=== PATIENT | female | born 1965 | race Caucasian/White ===

== ENCOUNTER 2022-09-26 10:06 | Outpatient (CLI) | payer OTHER, SELFPAY ==
--- NOTE | 2022-09-26 10:15 | CRLHL7_ITS ---
For Patients: As a result of the Cures Act, medical imaging exams and procedure reports are released immediately into your electronic medical record. You may view this report before your referring provider. If you have questions, please contact your health care provider. BILATERAL SCREENING MAMMOGRAM WITH COMPUTER-AIDED DETECTION AND TOMOSYNTHESIS TECHNIQUE: CC and MLO views were obtained. These mammographic images have been obtained using full-field digital technique. These mammographic images were interpreted with the benefit of computer-aided detection. Breast Tomosynthesis was used in this interpretation. COMPARISON FILM: 09/07/21, 08/24/20, 02/27/18. FINDINGS: The breasts are heterogeneously dense, which may obscure small masses IMPRESSION: There is no radiographic evidence for malignancy. ASSESSMENT: BI-RADS Category 1: Negative RECOMMENDATION: Routine screening mammogram in 1 year. A lay language report of this examination will be provided to the patient. Beny Smith M.D. Diagnostic Radiologist [email or web address] Transcribed: 1:12 [email or web address]/Dictated by: Beny Smith MD @ 09/26/2022 12:01:00 PM (Electronically Signed)
== END 2022-09-26 10:07 | disposition home or self-care (01) ==
LOC: MAMMO 10:07
PROVIDERS: Visit Provider Family Medicine
DX: Z12.31 Encounter for screening mammogram for malignant neoplasm of breast (principal); R92.2 Inconclusive mammogram
CPT/HCPCS: 77063; 77067

== ENCOUNTER 2023-05-09 10:45 | Outpatient (RCR) | payer OTHER, SELFPAY | END 2023-05-09 11:13 | disposition home or self-care (01) | PROVIDERS: Visit Provider Orthopaedic Surgery Sports Medicine | DX: M75.82 Other shoulder lesions, left shoulder (principal); Z51.89 Encounter for other specified aftercare | CPT/HCPCS: 97110; 97161 ==

== ENCOUNTER 2023-09-28 10:33 | Outpatient (CLI) | payer OTHER, SELFPAY ==
--- NOTE | 2023-09-28 10:45 | CRLHL7_ITS ---
For Patients: As a result of the Century Cures Act, medical imaging exams and procedure reports are released immediately into your electronic medical record. You may view this report before your referring provider. If you have questions, please contact your health care provider. BILATERAL SCREENING MAMMOGRAM WITH COMPUTER-AIDED DETECTION AND TOMOSYNTHESIS TECHNIQUE: CC and MLO views were obtained. These mammographic images have been obtained using full-field digital technique. These mammographic images were interpreted with the benefit of computer-aided detection. Breast Tomosynthesis was used in this interpretation. COMPARISON FILM: 09/26/22, 09/07/21, 08/24/20. FINDINGS: There are scattered areas of fibroglandular density IMPRESSION: There is no radiographic evidence for malignancy. ASSESSMENT: BI-RADS Category 1: Negative RECOMMENDATION: Routine screening mammogram in 1 year. A lay language report of this examination will be provided to the patient. Beny Smith M.D. Diagnostic Radiologist [email or web address] BRITTNEY/Dictated by: Beny Smith MD @ 10/03/2023 12:46:00 PM (Electronically Signed)
== END 2023-09-28 10:34 | disposition home or self-care (01) ==
LOC: MAMMO 10:34
PROVIDERS: Visit Provider Physician Assistant
DX: Z12.31 Encounter for screening mammogram for malignant neoplasm of breast (principal)
CPT/HCPCS: 77063; 77067